=== PATIENT | female | born 1950 | race Caucasian/White ===

== ENCOUNTER → 2016-12-18 | Outpatient (CLI) | payer OTHER ==
[~2016-12-18] MED LIST: ASPIRIN 81M81 MG/TA2 PO; ATIVAN 0.50.5 MG/TAB PO; CALCIUM 600MG+D1 TAB PO; CRESTOR; FLEXERIL 1010 MG/TAB PO; LEVOTHYROXIN0.075 MG PO; LIVALO2 MG PO; NEXIUM 40MG40 MG PO; OMEGA-3 1000 MG1 CAP PO; PHENERGAN 25 TA25 MG PO; SYNTHROID0.1 MG/TAB PO; VITAMIN E 400 U4001 PO
== END ==
LOC: MC.RAD 09:46
DX: Z12.31 Encounter for screening mammogram for malignant neoplasm of breast (principal)

== ENCOUNTER 2017-07-01 06:25 | Observation (INO) | payer MEDICARE, OTHER ==
[~2017-07-01] VITALS: Ht 154.9 cm; Wt 98.4 kg
[~2017-07-01 06:25] MED LIST changes: -ASPIRIN 81M81 MG/TA2 PO; -CALCIUM 600MG+D1 TAB PO; -FLEXERIL 1010 MG/TAB PO; -LIVALO2 MG PO; -NEXIUM 40MG40 MG PO; -OMEGA-3 1000 MG1 CAP PO; -SYNTHROID0.1 MG/TAB PO; -VITAMIN E 400 U4001 PO
[2017-07-01] MEDS ORDERED: LIVALO2 MG PO (06:46)
[2017-07-01] MEDS ORDERED: SYNTHROID0.1 MG/TAB PO (06:46)
[2017-07-01] MEDS ORDERED: FLEXERIL 1010 MG/TAB PO (06:47)
[2017-07-01] MEDS ORDERED: NEXIUM 40MG40 MG PO (06:51)
[2017-07-01 07:03] LABS: BASO % 0.5 % (0.0-2.0); EOS # 0.1 (0.0-0.7); EOS % 1.3 % (0-4.0); GRAN % 46.8 % (42.2-75.2); HEMATOCRIT 44.6 % (37.0-47.0); HEMOGLOBIN 15.1 g/dl (12.5-16.0); LYMPH # 3.8 (1.2-3.4); LYMPH % 44.6 % (20.0-51.0); MEAN CELL VOLUME 94 fl (80.0-100.0); MEAN CORPUSCULAR HEMOGLOBIN 32 pg (27.0-31.0); MEAN CORPUSCULAR HGB CONC 34 g/dl (33.0-37.0); MEAN PLATELET VOLUME 9.9 fl (7.4-10.4); MONO # 0.6 (0.1-0.6); MONO % 6.6 % (1.7-9.3); PLATELET COUNT 217 K/mm3 (130-400); RED BLOOD COUNT 4.74 M/mm3 (4.10-5.30); WHITE BLOOD COUNT 8.5 K/mm3 (4.8-10.8)
[2017-07-01 07:14] LABS: ADJUSTED CALCIUM 9.1 mg/dL (8.4-10.2); ALANINE AMINOTRANSFERASE 33 U/L (9-52); ALBUMIN 4.5 gm/dL (3.5-5.0); ALKALINE PHOSPHATASE 80 U/L (50-136); ANION GAP 12 mmol/L (7-16); BLOOD UREA NITROGEN 15 mg/dL (7-17); CALCIUM 9.5 mg/dL (8.4-10.2); CARBON DIOXIDE 25 mmol/L (22-30); CHLORIDE 103 mmol/L (98-107); CREATININE, serum 0.64 mg/dL (0.52-1.25); GLUCOSE 121 mg/dL (74-106); LIPASE 52 U/L (23-300); POTASSIUM 4.1 mmol/L (3.4-5.0); SODIUM 140 mmol/L (137-145); TOTAL PROTEIN 8.1 gm/dL (6.4-8.2)
[2017-07-01 07:25] LABS: B-TYPE NATRIURETIC PEPTIDE 52 pg/mL (0-125)
[2017-07-01 07:27] LABS: TROPONIN-I < 0.012 ng/mL (0.000-0.034)
[2017-07-01 12:04] VITALS: BP 138/72; PULSE 69; TEMP 97
[2017-07-01 13:27] VITALS: BP 138/72; PULSE 69; TEMP 97
[2017-07-01] MEDS ORDERED: VITAMIN E 400 U4001 PO (15:28)
[2017-07-01] MEDS ORDERED: OMEGA-3 1000 MG1 CAP PO (15:28)
[2017-07-01] MEDS ORDERED: CALCIUM 600MG+D1 TAB PO (15:29)
[2017-07-01 16:06] VITALS: BP 111/62; PULSE 7; TEMP 97.7
[2017-07-01 19:34] VITALS: BP 103/60; PULSE 77; TEMP 98
[2017-07-01 23:57] VITALS: BP 117/62; PULSE 76; TEMP 97.7
[2017-07-02 03:59] VITALS: BP 120/68; PULSE 72; TEMP 97.6
[2017-07-02 06:58] LABS: HEMOGLOBIN 13.7 g/dl (12.5-16.0); MEAN CELL VOLUME 98 fl (80.0-100.0); MEAN CORPUSCULAR HEMOGLOBIN 32 pg (27.0-31.0); MEAN CORPUSCULAR HGB CONC 33 g/dl (33.0-37.0); PLATELET COUNT 176 K/mm3 (130-400); REDCELL DISTRIBUTION WIDTH-CV 13.2 % (11.5-14.5); WHITE BLOOD COUNT 7.1 K/mm3 (4.8-10.8)
[2017-07-02 07:09] LABS: CALCIUM 8.9 mg/dL (8.4-10.2); CREATININE, serum 0.71 mg/dL (0.52-1.25); POTASSIUM 3.8 mmol/L (3.4-5.0)
[2017-07-02 07:25] VITALS: BP 118/61; PULSE 71; TEMP 97.7
[2017-07-02] MEDS ORDERED: ASPIRIN 81M81 MG/TA2 PO (08:46)
[2017-07-04] MEDS ORDERED: SYNTHROID0.1 MG/TAB PO (13:27)
[2017-07-04] MEDS ORDERED: ASPIRIN 81M81 MG/TA2 PO (13:28)
[2017-07-04] MEDS ORDERED: LIVALO2 MG PO (13:28)
== END 2017-07-02 10:00 | disposition home or self-care (01) ==
LOC: COL.ER 06:25 → MEDICAL 09:09
PROVIDERS: Emergency Medicine; Internal Medicine
DX: R07.9 Chest pain, unspecified (principal); R42 Dizziness and giddiness; I10 Essential (primary) hypertension; R11.0 Nausea; R91.1 Solitary pulmonary nodule; K21.9 Gastro-esophageal reflux disease without esophagitis; E78.5 Hyperlipidemia, unspecified; Z82.49 Family history of ischemic heart disease and other diseases of the circulatory system; Z90.49 Acquired absence of other specified parts of digestive tract
CPT/HCPCS: G0378; J1650; J2405; J2550; J7030; Q9967

== ENCOUNTER → 2017-07-05 | Outpatient (CLI) | payer MEDICARE, OTHER ==
[~2017-07-05] VITALS: Ht 154.9 cm; Wt 97.9 kg
[~2017-07-05] MED LIST changes: +ASPIRIN 81M81 MG/TA2 PO; +CALCIUM 600MG+D1 TAB PO; +FLEXERIL 1010 MG/TAB PO; +LIVALO2 MG PO; +NEXIUM 40MG40 MG PO; +OMEGA-3 1000 MG1 CAP PO; +SYNTHROID0.1 MG/TAB PO; +VITAMIN E 400 U4001 PO
[2017-07-05 05:53] VITALS: BP 139/83; PULSE 84
--- NOTE | 2017-07-05 06:03 | NUR ---
notified umm that pt is ready
--- NOTE | 2017-07-05 06:43 | NUR ---
TAKEN BACK FOR PICTURES
[2017-07-05 07:13] VITALS: BP 130/82; PULSE 85
[2017-07-05 07:20] VITALS: BP 150/82; PULSE 115
[2017-07-05 07:22] VITALS: BP 140/82; PULSE 105
== END ==
LOC: COL.CARD 05:34
DX: R07.9 Chest pain, unspecified (principal); Z90.49 Acquired absence of other specified parts of digestive tract
CPT/HCPCS: A9502; J2785

== ENCOUNTER → 2017-12-20 | Outpatient (CLI) | payer MEDICARE, OTHER | LOC: MC.RAD 12-17 10:00 | DX: Z12.31 Encounter for screening mammogram for malignant neoplasm of breast (principal) ==

== ENCOUNTER → 2018-11-14 | Outpatient (CLI) | payer MEDICARE, OTHER | LOC: SUN.DIA 10:11 | DX: E11.9 Type 2 diabetes mellitus without complications (principal); E78.5 Hyperlipidemia, unspecified; E66.9 Obesity, unspecified | CPT/HCPCS: G0108 ==

== ENCOUNTER → 2018-12-18 | Outpatient (CLI) | payer MEDICARE, OTHER | LOC: COL.RAD 08:03 | DX: N95.0 Postmenopausal bleeding (principal) ==

== ENCOUNTER → 2019-11-27 | Outpatient (CLI) | payer MEDICARE, OTHER | LOC: MC.RAD 14:46 | DX: Z12.31 Encounter for screening mammogram for malignant neoplasm of breast (principal) ==

== ENCOUNTER → 2020-12-01 | Outpatient (CLI) | payer MEDICARE, OTHER | LOC: MC.RAD 10:56 | DX: Z12.31 Encounter for screening mammogram for malignant neoplasm of breast (principal) ==

== ENCOUNTER → 2021-12-19 | Outpatient (CLI) | payer MEDICARE, OTHER | LOC: MC.RAD 13:43 | DX: Z12.31 Encounter for screening mammogram for malignant neoplasm of breast (principal) ==